=== PATIENT | female | born 1995 | race Caucasian/White ===

== ENCOUNTER 2017-12-22 11:04 | Emergency (ER) | payer OTHER | END 2017-12-22 13:47 | disposition home or self-care (01) | LOC: FTE 11:04 | DX: M65.4 Radial styloid tenosynovitis [de Quervain] (principal) | CPT/HCPCS: 29125; 73110-LT; 99283-25 ==

== ENCOUNTER 2018-09-10 12:54 | Emergency (ER) | payer OTHER ==
[2018-09-10] MEDS: CEFTRIAXONE 1 GM INJ IM (14:18)
[2018-09-10] MEDS: LIDOCAINE 1% (MPF) 5 ML VIAL INJ (14:26)
== END 2018-09-10 14:27 | disposition home or self-care (01) ==
LOC: FTE 12:54
DX: L03.115 Cellulitis of right lower limb (principal)
CPT/HCPCS: 96372; 99284-25

== ENCOUNTER 2018-09-12 13:18 | Emergency (ER) | payer OTHER | END 2018-09-12 15:20 | disposition home or self-care (01) | LOC: FTE 13:18 | DX: L03.115 Cellulitis of right lower limb (principal) | CPT/HCPCS: 99283; Z7502 ==

== ENCOUNTER 2018-09-26 22:10 | Emergency (ER) | payer OTHER ==
[2018-09-27] MEDS: DEXAMETHASONE 10 MG/ML 1 ML INJ IM (01:56)
[2018-09-27] MEDS: HYDROCODONE/APAP (5/325) TAB PO (01:57)
[2018-09-27] MEDS: DIPHENHYDRAMINE 50 MG INJ IM (01:57)
[2018-09-27] MEDS: DIPHTH/TET/ACEL PERTUSS (ADULT) 0.5 ML VIAL IM* (02:02)
== END 2018-09-27 02:07 | disposition home or self-care (01) ==
LOC: FTE 22:10
DX: S40.862A Insect bite (nonvenomous) of left upper arm, initial encounter (principal); L03.114 Cellulitis of left upper limb; M79.89 Other specified soft tissue disorders; W57.XXXA Bitten or stung by nonvenomous insect and other nonvenomous arthropods, initial encounter; Y92.9 Unspecified place or not applicable
CPT/HCPCS: 90715; 96372; 99284-25

== ENCOUNTER 2018-11-25 14:32 | Emergency (ER) | payer OTHER | END 2018-11-25 15:59 | disposition home or self-care (01) | LOC: E/R 14:32 | DX: S99.911A Unspecified injury of right ankle, initial encounter (principal); X50.1XXA Overexertion from prolonged static or awkward postures, initial encounter; Y92.9 Unspecified place or not applicable | CPT/HCPCS: 73610; 73610-RT; 99283-25 ==